=== PATIENT | female | born 1950 | race Caucasian/White ===

== ENCOUNTER → 2017-06-10 | Outpatient (CLI) | payer MEDICARE ==
[2017-06-10 10:12] LABS: ALT 39 U/L (9-52); AST 33 U/L (14-36); Alkaline Phosphatase 146 U/L (38-126); Anion Gap 8 mmol/L; Blood Urea Nitrogen 20 mg/dL (7-17); Calcium 8.8 mg/dL (8.4-10.2); Carbon Dioxide 27 mmol/L (22-30); Chloride 107 mmol/L (98-107); Cholesterol 95 mg/dL (<200); Glucose 86 mg/dL (74-99); HDL Cholesterol 40 mg/dL (40-60); Non-African American GFR(MDRD) >60 (>60 ml/min/1.73 sqM); Potassium 4.1 mmol/L (3.5-5.1); Sodium 142 mmol/L (137-145); Total Bilirubin 0.5 mg/dL (0.2-1.3); Total Protein 6.8 g/dL (6.3-8.2)
== END | disposition home or self-care (01) ==
LOC: LABWHC1 08:58
PROVIDERS: ATTEND Internal Medicine Interventional Cardiology
DX: E78.2 Mixed hyperlipidemia (principal); D48.3 Neoplasm of uncertain behavior of retroperitoneum
CPT/HCPCS: 36415; 80053; 80061; 84443

== ENCOUNTER → 2017-11-15 | Outpatient (CLI) | payer MEDICARE, OTHER ==
--- NOTE | 2017-11-15 11:00 | CT ---
EXAMINATION TYPE: CT cervical spine wo con DATE OF EXAM: 11/15/2017 COMPARISON: NONE HISTORY: Cervicalgia CT DLP: 417.4 mGycm. Automated Exposure Control for Dose Reduction was Utilized. TECHNIQUE: CT scan of the cervical spine is obtained without contrast, axial images are obtained, sa gittal and coronal reformatted images are also reviewed. FINDINGS: Incidental note is made of an os odontoideum. There is a type III dens fracture which is no nunited and age indeterminate although this appears at least subacute as there is some periosteal kay ction and formation of an anterior osteophyte attempting to form of bridging callus. The dens is slig htly apex anterior angulation and there is mild focal prevertebral soft tissue swelling of 7 mm at th e apex of angulation of C2. There is minimal (grade 1) anterolisthesis of C2 on C3. No additional cer vical spine fractures identified. There is uncovertebral hypertrophy facet arthropathy throughout the cervical spine resulting in multi level neural foraminal stenosis. At C2-C3 there is mild left neural foraminal narrowing. At C3-C4 the re is mild bilateral neural foraminal narrowing. At C4-C5 there is severe left neural foraminal narro wing and mild right neural foraminal narrowing. At C5-C6 there is severe left neural foraminal narrow ing and moderate right neural foraminal narrowing. At C6-C7 there is mild bilateral neural foraminal narrowing. Mild spinal canal stenosis is also seen at C5-C6 and C6-C7. There is straightening of the usual cervical lordosis. Small posterior disc osteophyte complexes are seen at C5-C6 and C6-C7. Degenerative changes are seen of the temporomandibular joints with flattenin g of the mandibular condyles and lateral subluxation bilaterally. IMPRESSION: 1. Nonunited type III dens fracture with minimal apex anterior angulation at the fracture site withou t retropulsion or spinal canal stenosis at this level. Mild prevertebral soft tissue swelling is note d. This appears to be subacute with some anterior osteophyte formation and periosteal reaction howeve r MRI could be performed to evaluate for bone marrow edema. [facility] directly by Dr. Villagomez on 11/15/2017 at 10:57 AM. 2. Straightening of the usual cervical lordosis that may relate to muscular strain or spasm. 3. Multilevel moderate degenerative disc disease resulting in variable degrees of neural foraminal st enosis as described above and mild spinal canal stenosis at C5-C6 and C6-C7. 3. Grade 1 anterolisthesis of C2 on C3.
== END | disposition home or self-care (01) ==
LOC: EEVIPCON 09:00 → RADCTMAIN 09:24
PROVIDERS: ATTEND Neurological Surgery
DX: S12.110A Anterior displaced Type II dens fracture, initial encounter for closed fracture (principal); M43.12 Spondylolisthesis, cervical region
CPT/HCPCS: 72125